=== PATIENT | male | born 1950 | race Caucasian/White ===

== ENCOUNTER 2019-08-25 10:10 | Outpatient (CLI) | payer OTHER, SELFPAY ==
[2019-08-25 10:51] LABS: Blood Urea Nitrogen 12 mg/dL (9-20); Calcium 9.1 mg/dL (8.4-10.2); Carbon Dioxide 27 mmol/L (22-30); Chloride 106 mmol/L (98-107); Estimated Glomerular Filt Rate > 60; Glucose 109 mg/dL (75-110); Potassium 4.4 mmol/L (3.4-5.0); Sodium 138 mmol/L (137-145)
[2019-08-25 11:07] LABS: Hemoglobin A1C 5.8 % (<5.7)
[2019-08-25 11:17] LABS: Creatinine Urine 64.9 mg/dL
[2019-08-25 11:19] LABS: Prostate Specific Antigen < 0.1 ng/mL (< OR = 4.0)
[2019-08-25 11:22] LABS: Microalbumin Urine Random 21.4 mg/L (0-16.7)
== END 2019-08-25 10:11 | disposition home or self-care (01) ==
PROVIDERS: PCP Internal Medicine; Visit Provider Internal Medicine
DX: R73.01 Impaired fasting glucose (principal); Z12.5 Encounter for screening for malignant neoplasm of prostate; Z85.46 Personal history of malignant neoplasm of prostate
CPT/HCPCS: 36415; 80048; 82043; 83036; 84153; G0103

== ENCOUNTER 2020-12-25 19:42 | Observation (INO) | payer OTHER, SELFPAY ==
--- NOTE | ~2020-12-25 | XR_ITS ---
XR chest 2V DATE: 12/25/2020 20:23 INDICATION: Chest pain, epigastric pain, right lower quadrant abdominal pain since morning. Vomiting. TECHNIQUE: AP and lateral views COMPARISON: 10/13/2016 PA and lateral chest FINDINGS: No pulmonary infiltrates or consolidation, pleural effusion or pulmonary vascular congestio n or pneumothorax. No pulmonary consolidation, pleural effusion, pulmonary vascular congestion or pneumothorax. No hilar or mediastinal enlargement. Heart size appears within normal range. IMPRESSION: No active disease Reviewed, dictated and finalized at location A. IMPRESSION: No active disease
--- NOTE | ~2020-12-25 | CT_ITS ---
EXAMINATION: CT abdomen pelvis w con DATE: 12/25/2020 21:03 INDICATION: Right lower quadrant abdominal pain TECHNIQUE: Computed tomography (CT) of the abdomen and pelvis was performed with 100 cc Omnipaque 350 intravenous contrast. Automated exposure control and iterative reconstruction technique were employe d. Exam dose: 1178.55 mGy-cm total exam DLP. COMPARISON: None. FINDINGS: Nonspecific 3 mm right lower lobe pulmonary nodule (series 4 image 3). Heart size is within normal limits. No pericardial or pleural effusion. Small sliding hiatal hernia. There are multiple scattered hepatic cysts, measuring up to 2.7 cm. The gallbladder is present. No ga llbladder wall thickening or pericholecystic fluid or fat stranding. No bile duct or pancreatic duct dilatation. No pancreatic mass lesion. There is calcification at the tail the pancreas. Normal splenic size. Normal morphology of the adrenal glands. Several subcentimeter small renal cysts are identified. No urinary tract calculus or hydroureteroneph rosis. Normal caliber of the abdominal aorta. No intraperitoneal or retroperitoneal or pelvic mass lesion or adenopathy or ascites. There is small fat-containing inguinal hernias. The urinary bladder is unremarkable. Prostate gland and seminal vesicles are absent. The appendix is dilated, measuring up to 1.4 cm diameter. Appendicolith is noted. There is mild peria ppendiceal fat stranding and minimal fluid. The findings are consistent with acute appendicitis. No a bscess is detected. No bowel obstruction or intraperitoneal free air. Included skeletal structures are unremarkable. IMPRESSION: Acute appendicitis Status post prostatectomy Small sliding hiatal hernia Multiple hepatic and a few small renal cysts Dr. Wood telephoned the report of acute appendicitis on 12/25/2020 at 2116 hours to ER Charge Nurse Isaiah morgan, who indicated she would notify ER physician Dr. Leiva. Reviewed, dictated and finalized at Location A. Reviewed, dictated and finalized at location A. IMPRESSION: Acute appendicitis Status post prostatectomy Small sliding hiatal hernia Multiple hepatic and a few small renal cysts Dr. Wood telephoned the report of acute appendicitis on 12/25/2020 at 2116 hours to ER Charge Nurse Danii, who indicated she would notify ER physician Dr. Magaly zhou
--- NOTE | 2020-12-25 19:52 | ECG_ITS ---
Measurements Intervals Warner Rate: 66 P: 34 OK: 196 QRS: 60 QRSD: 108 T: 15 QT: 401 QTc: 421 Interpretive Statements SINUS RHYTHM NORMAL ECG Electronically Signed On 12-25-2020 20:20:37 CDT by Neto Coates D.O.
[2020-12-25 20:02] VITALS: BP 142/86; PULSE 71; RESP 18; TEMP 36.1; O2SAT 98
[2020-12-25 20:03] LABS: Basophils Absolute Auto 0.1 K/mm3 (0.0-0.1); Basophils Percent Auto 0.7 % (0.2-1.2); Eosinophils Absolute Auto 0.3 K/mm3 (0-0.3); Eosinophils Percent Auto 2.6 % (0-4.4); Hematocrit 42.1 % (42.0-52.0); Hemoglobin 14.7 g/dL (14.0-18.0); Immature Granulocyte Absolute 0.02 K/mm3 (0.00-0.031); Immature Granulocyte Percent A 0.2 % (0-0.5); Lymphocytes Absolute Auto 1.05 K/mm3 (0.9-3.2); Lymphocytes Percent Auto 9.8 % (18.3-44.2); Mean Corpuscular HGB Conc 34.9 g/dl (32-36); Mean Corpuscular Hemoglobin 30.3 pg (26-34); Mean Corpuscular Volume 86.8 fl (80-100); Mean Platelet Volume 9.3 fl (7.4-10.4); Monocytes Absolute Auto 0.5 K/mm3 (0.1-0.6); Monocytes Percent Auto 4.5 % (2.6-8.5); Neutrophils Absolute Auto 8.8 K/mm3 (1.3-6.7); Neutrophils Percent Auto 82.2 % (45.5-73.1); Platelet Count Result 255 k/mm3 (150-375); Red Blood Count 4.85 M/mm3 (4.6-6.20); Red Cell Distribution Width 12.2 % (11.5-14.5); White Blood Count 10.7 K/mm3 (4.5-10.0)
[2020-12-25 20:12] LABS: Anion Gap 10 mmol/L (8-16); Blood Urea Nitrogen 16 mg/dL (9-20); Calcium 9.4 mg/dL (8.4-10.2); Carbon Dioxide 23 mmol/L (22-30); Chloride 107 mmol/L (98-107); Estimated CRCL calculation 64 ml/min; Estimated Glomerular Filt Rate > 60; Glucose 125 mg/dL (65-110); Potassium 4.2 mmol/L (3.4-5.0); Sodium 140 mmol/L (137-145)
[2020-12-25 20:13] LABS: Partial Thromboplastin Time 24.1 SECONDS (22.3-36.8); Prothrombin Time 13.4 Seconds (11.1-14.7)
--- NOTE | 2020-12-25 20:15 | PC.NURSE ---
Patient taken to xray.
[2020-12-25 20:24] LABS: Troponin I < 0.012 ng/mL (0.000-0.034)
--- NOTE | 2020-12-25 20:36 | ED.ABDPAIN ---
HPI - Abdominal Pain General Chief Complaint: Chest Pain Stated Complaint: abdominal/chest pain Time Seen by Provider: 12/25/20 20:15 Source: patient and RN notes reviewed Mode of arrival: ambulatory Limitations: no limitations History of Present Illness HPI narrative: This is a 70 year old male who presents for evaluation of abdominal pain. He states this morning he developed upper abdominal pain and right lower abdominal pain. This pain has been constant with intermittent sharp pain that radiates to his epigastric. He has nausea with dry heaves. He denies urinary problems or fever/chills. He denies having similar pain in the past. He took aspirin for his pain today with out relief. His pain is rated 8/10. MD elicited complaint: abdominal pain Related Data Home Medications Medication Instructions Recorded Confirmed krill 1 cap PO DAILY 03/19/19 09/01/20 [id number] 300 mg-90 mg-24 mg-50 mg capsule Allergies Allergy/AdvReac Type Severity Reaction Status Date / Time No Known Allergies Allergy Verified 12/25/20 20:15 Review of Systems Review of Systems: All systems reviewed & are unremarkable except as noted in HPI and below PMFSH Past Medical History Medical History (Updated 12/25/20 @ 23:01 by Liudmila Leiva MD) Essential hypertension Mixed hyperlipidemia Prostate cancer Surgical History Surgical History (Updated 04/26/20 @ 07:54 by Robert Olivares CMA) History of prostatectomy Family History Family History Father Hypertension Patient's father is Mother Family history of dementia Social History Social History (Updated 09/01/20 @ 09:36 by Chanelle Gomez MA) Smoking status: Never smoker Second hand tobacco smoke exposure: Yes Alcohol intake: current Drinks per week: 18 Exam Const: General: no acute distress and alert Orientation/consciousness: patient oriented x3 Eyes: EOM: EOMs intact bilaterally Resp: Effort & Inspection: normal respiratory effort and no retractions Auscultation: clear to auscultation bilaterally Cardio: Rate: regular rate Rhythm: regular rhythm Heart sounds: no murmurs GI: GI Palp: Yes Soft to palpation, Yes Tenderness to palpation present (GI) (RLQ, RUQ worse at RLQ), No Guarding due to palpation present (GI) and No Rigid due to palpation Auscultation: normal bowel sounds Skin: General skin exam: normal color Rashes: no rashes Neuro: General: patient oriented x3, moves all extremities and CN's II-XI intact bilaterally Psych: Mental Status: mental status grossly normal Affect: normal affect Course Reevaluation(s) Reevaluation #1: I discussed with patient that he was found to have acute appendicitis as the cause of his pain. He understands he will be admitted and place on IV antibiotics. He will see surgeon tomorrow. Date: 12/25/20 Time: 22:00 Consultations Consultation #1: I Discussed case with Dr. Villegas who agrees to admit to his service. He request IV antibiotics. Date: 12/25/20 Time: 21:40 Vital Signs Vital signs: Vital Signs Temperature 96.9 F L 12/25/20 20:02 Pulse Rate 71 12/25/20 20:02 Respiratory Rate 18 12/25/20 20:02 Blood Pressure 142/86 H 12/25/20 20:02 Pulse Oximetry 98 12/25/20 20:02 Temperature 96.9 F L 12/25/20 20:02 Pulse Rate 79 12/25/20 21:15 Respiratory Rate 13 12/25/20 21:15 Blood Pressure 152/99 H 12/25/20 21:15 Pulse Oximetry 98 12/25/20 21:15 MDM - Abdominal Pain Lab Data Attestation: I reviewed the patient's lab results. Result diagrams: 12/25/20 19:56 12/25/20 19:56 Labs: Lab Results 12/25/20 12/25/20 12/25/20 Range/Units 19:56 19:56 19:56 WBC 10.7 H (4.5-10.0) K/mm3 RBC 4.85 (4.6-6.20) M/mm3 Hgb 14.7 (14.0-18.0) g/dL Hct 42.1 (42.0-52.0) % MCV 86.8 (80-100) fl MCH 30.3 (26-34) pg MCHC 34
[2020-12-25] MEDS: MORPHINE SULFATE (*CRX) 4 MG/ML INJ 6 MG IV PUSH (20:51)
[2020-12-25] MEDS: ONDANSETRON INJ 4 MG/2 ML VIAL IV PUSH (20:51)
[2020-12-25] MEDS: SODIUM CHLORIDE 0.9% IV 1,000 ML 999 ML IV CONT (20:51)
[2020-12-25 20:53] LABS: Alanine Aminotransferase 29 U/L (4-50); Albumin Level 4.7 g/dL (3.5-5.1); Alkaline Phosphatase 58 U/L (38-126); Aspartate Amino Transferase 29 U/L (17-59); Bilirubin,Total 0.9 mg/dL (0.2-1.3)
--- NOTE | 2020-12-25 20:55 | PC.NURSE ---
Patient taken to CT.
[2020-12-25 20:59] LABS: Lipase 56 U/L (23-300)
[2020-12-25 21:07] VITALS: PULSE 80; RESP 12; O2SAT 98
[2020-12-25 21:15] VITALS: BP 152/99; PULSE 79; RESP 13; O2SAT 98
[2020-12-25 22:01] LABS: Add Urine Microscopic? YES; Appearance Urine Clear (Clear); Bilirubin Urine Negative (Negative); Blood Urine Negative (Negative); Color Urine Straw (Yellow); Glucose Urine UA Negative (Negative); Ketones Urine Trace mg/dL (Negative); Leukocyte Esterase Ur Negative LEU/UL (Negative); Nitrate Urine Negative (Negative); Protein Urine Negative (Negative); RBC Urine 0-2 /hpf (0-2); Urobilinogen Urine Negative mg/dL (<2.0)
[2020-12-25 22:06] LABS: Specific Grav Ur 1.034 (1.001-1.035)
[2020-12-25] MEDS: HYDROmorphone HCL INJ (*CRX) 1 MG/ML SYR IV PUSH (23:00)
[2020-12-25 23:03] VITALS: BP 150/83; PULSE 72; RESP 16; TEMP 36.5; O2SAT 98
[2020-12-25 23:05] LABS: Troponin I < 0.012 ng/mL (0.000-0.034)
[2020-12-25 23:19] VITALS: BMI 29.5
[2020-12-25 23:25] VITALS: BP 143/80; PULSE 71; RESP 14; TEMP 37.1; O2SAT 96
--- NOTE | 2020-12-25 23:32 | ADMGEN ---
This patient, Tru Haynes, was admitted to [facility]. Patient/family oriented to hospital policies and general routines including ID bracelet, bed and alarms, visiting hours, pain management, procedures, bathroom and other care routines, personal items, smoking policy, room service/diet, and visiting hours. Information on how to activate the Rapid Response Team has been discussed. Patient/Family are encouraged to report perceived risks to care and to ask questions if they do not understand what they are told or what they should do.
[2020-12-25] MEDS: SODIUM CHLORIDE 0.9% IV 1,000 ML 125 ML IV CONT (23:47)
[2020-12-26] VITALS (21 sets, daily range): BP systolic 120–164; BP diastolic 72–94; PULSE 77–98; RESP 13–22; TEMP 36.9–37.7; O2SAT 92–99
[2020-12-26 02:16] LABS: Troponin I < 0.012 ng/mL (0.000-0.034)
[2020-12-26] MEDS: HYDROmorphone HCL INJ (*CRX) 1 MG/ML SYR IV PUSH (03:18)
[2020-12-26 05:26] LABS: Basophils Absolute Auto 0.1 K/mm3 (0.0-0.1); Basophils Percent Auto 0.4 % (0.2-1.2); Eosinophils Percent Auto 0.1 % (0-4.4); Hematocrit 40.4 % (42.0-52.0); Hemoglobin 13.8 g/dL (14.0-18.0); Immature Granulocyte Absolute 0.03 K/mm3 (0.00-0.031); Immature Granulocyte Percent A 0.2 % (0-0.5); Lymphocytes Absolute Auto 1.04 K/mm3 (0.9-3.2); Lymphocytes Percent Auto 8.4 % (18.3-44.2); Mean Corpuscular HGB Conc 34.2 g/dl (32-36); Mean Corpuscular Hemoglobin 30.5 pg (26-34); Mean Corpuscular Volume 89.2 fl (80-100); Monocytes Absolute Auto 0.9 K/mm3 (0.1-0.6); Monocytes Percent Auto 7.5 % (2.6-8.5); Neutrophils Absolute Auto 10.3 K/mm3 (1.3-6.7); Neutrophils Percent Auto 83.4 % (45.5-73.1); Platelet Count Result 214 k/mm3 (150-375); Red Blood Count 4.53 M/mm3 (4.6-6.20); Red Cell Distribution Width 12.3 % (11.5-14.5); White Blood Count 12.3 K/mm3 (4.5-10.0)
[2020-12-26 05:45] LABS: Alanine Aminotransferase 25 U/L (4-50); Albumin Level 4.3 g/dL (3.5-5.1); Alkaline Phosphatase 43 U/L (38-126); Anion Gap 10 mmol/L (8-16); Aspartate Amino Transferase 32 U/L (17-59); Bilirubin,Total 1.3 mg/dL (0.2-1.3); Blood Urea Nitrogen 15 mg/dL (9-20); Calcium 8.2 mg/dL (8.4-10.2); Carbon Dioxide 24 mmol/L (22-30); Chloride 105 mmol/L (98-107); Estimated CRCL calculation 71 ml/min; Estimated Glomerular Filt Rate > 60; Glucose 134 mg/dL (65-110); Potassium 4.5 mmol/L (3.4-5.0); Sodium 139 mmol/L (137-145)
--- NOTE | 2020-12-26 06:50 | WPDANESEPPF ---
Anes - Initial Pre Proc Eval Procedure: Operation Date: 12/26/20 07:30 Proposed Procedures p Laparoscopic Appendectomy - Amy Villegas MD Date/Time: 12/26/20 06:50 Surgeon: Amy Villegas MD Pre Op Diagnosis: Acute Appendicitis Patient Data Age: 70 Gender: M Height: 1.78 m Weight: 93.2 kg Last Vital Signs Temp 37.3 C 12/26/20 06:00 Pulse 81 12/26/20 06:00 Resp 16 12/26/20 06:00 BP 144/94 H 12/26/20 06:00 Pulse Ox 97 12/26/20 06:00 Allergies Allergy/AdvReac Type Severity Reaction Status Date / Time No Known Allergies Allergy Verified 12/25/20 20:15 Home Medications Medication Instructions Recorded Confirmed Type benazepril 40 mg tablet See Rx Instructions .ROUTE 07/22/20 12/26/20 Rx .COMPLEX #90 tablet potassium chloride 20 mEq 20 meq PO DAILY #90 tablet 09/01/20 12/26/20 Rx tablet,extended release hydrochlorothiazide 25 mg tablet See Rx Instructions .ROUTE 10/13/20 12/26/20 Rx .COMPLEX #90 tablet metoprolol tartrate 100 mg tablet 100 mg PO Q12H #180 tablet 10/18/20 12/26/20 Rx rosuvastatin 10 mg tablet See Rx Instructions .ROUTE 10/18/20 12/26/20 Rx .COMPLEX #90 tablet Laboratory Tests 12/25/20 12/25/20 12/25/20 19:56 19:56 19:56 WBC 10.7 K/mm3 H K/mm3 (4.5-10.0) RBC 4.85 M/mm3 M/mm3 (4.6-6.20) Hgb 14.7 g/dL g/dL (14.0-18.0) Hct 42.1 % % (42.0-52.0) MCV 86.8 fl fl (80-100) MCH 30.3 pg pg (26-34) MCHC 34.9 g/dl g/dl (32-36) RDW 12.2 % % (11.5-14.5) Plt Count 255 k/mm3 k/mm3 (150-375) MPV 9.3 fl fl (7.4-10.4) Immature Gran % (Auto) 0.2 % % (0-0.5) Neut % (Auto) 82.2 % H % (45.5-73.1) Lymph % (Auto) 9.8 % L % (18.3-44.2) Ma[place]ick % (Auto) 4.5 % % (2.6-8.5) Eos % (Auto) 2.6 % % (0-4.4) Baso % (Auto) 0.7 % % (0.2-1.2) Lymph # (Auto) 1.05 K/mm3 K/mm3 (0.9-3.2) [place]ick # (Auto) 0.5 K/mm3 K/mm3 (0.1-0.6) Eos # (Auto) 0.3 K/mm3 K/mm3 (0-0.3) Baso # (Auto) 0.1 K/mm3 K/mm3 (0.0-0.1) Abs Immat Gran (auto) 0.02 K/mm3 K/mm3 (0.00-0.031) Absolute Neuts (auto) 8.8 K/mm3 H K/mm3 (1.3-6.7) Absolute Nucleated RBC 0.0 K/mm3 K/mm3 (0.0-0.012) Nucleated RBC % 0.0 % % (0.0-0.2) PT 13.4 Seconds Seconds (11.1-14.7) INR 1.0 APTT 24.1 SECONDS SECONDS (22.3-36.8) Sodium 140 mmol/L mmol/L (137-145) Potassium 4.2 mmol/L mmol/L (3.4-5.0) Chloride 107 mmol/L mmol/L (98-107) Carbon Dioxide 23 mmol/L mmol/L (22-30) Anion Gap 10 mmol/L mmol/L (8-16) BUN 16 mg/dL mg/dL (9-20) Creatinine 1.00 mg/dL mg/dL (0.7-1.3) Estim Creat Clear Calc 64 ml/min ml/min Estimated GFR > 60 (59 - ) Glucose 125 mg/dL H mg/dL (65-110) Calcium 9.4 mg/dL mg/dL (8.4-10.2) Total Bilirubin Direct Bilirubin AST ALT Alkaline Phosphatase Troponin I < 0.012 ng/mL ng/mL (0.000-0.034) Total Protein Albumin Lipase Urine Color Urine Appearance Urine pH Ur Specific [place] Urine Protein Urine Glucose (UA) Urine Ketones Ur Blood (Man) Urine Nitrate Urine Bilirubin Urine Urobilinogen Leukocyte Esterase Rfl Urine RBC 12/25/20 12/25/20 12/25/20 19:56 19:56 21:50 WBC RBC Hgb Hct MCV MCH MCHC RDW Plt Count MPV Immature Gran % (Auto) Neut % (Auto) Lymph % (Auto)
--- NOTE | 2020-12-26 07:00 | PC.NURSE ---
0700 updated spouse on pt condition and that i just took him to the or to prep him for surgery with dr bhat
--- NOTE | 2020-12-26 07:16 | PM.IMHP ---
H&P: HPI History of Present Illness Date/Time: 12/26/20 07:16 Pt is a 70 y/o M presenting to ED overnight c/o severe RLQ abdominal pain. Pt reports pain started yesterday morning and was diffuse, dull. Pt reports pain progressively worsened to sharp and localized to R lower side. Pt reports some radiation to upper abdomen as well. Pt reports decreased appetite and nausea. Chief Complaint: acute appendicitis Review of Systems Constitutional: Constitutional: Reports anorexia, Denies chills, Denies fatigue, Denies fever(s), Denies lethargy, Denies malaise, Reports poor appetite, Denies weakness, Denies weight gain and Denies weight loss Eyes: Eyes: Reports no additional eye complaints ENT: Reports system reviewed and no additional complaints, except as documented Cardiovascular: Cardiovascular: Reports no additional cardiovascular complaints Respiratory: Respiratory: Reports no additional respiratory complaints Gastrointestinal: Gastrointestinal: Reports as per HPI, Reports abdominal pain, Denies belching, Denies bloating, Denies change in stool character, Denies constipation, Reports GI cramping, Denies heartburn, Denies diarrhea, Denies loose stools, Reports nausea and Denies vomiting Genitourinary: Genitourinary: Reports no additional male genitourinary complaints Musculoskeletal: Musculoskeletal: Reports no additional musculoskeletal complaints Integumentary/Breasts: Skin/Breast: Reports system reviewed and no additional complaints, except as docu Neurologic: Reports system reviewed and no additional complaints, except as documented Psychiatric: Psychiatric: Reports no additional psychiatric complaints Endocrine: Endocrine: Reports no additional endocrine complaints Hematologic/Lymphatic: Hematologic/Lymphatic: Reports no additional hematologic/lymphatic complaints Allergic/Immunologic: Allergic/Immunologic: Reports no additional allergic/immunologic complaints [facility] Past Medical History Medical History Essential hypertension Liver cyst Mixed hyperlipidemia Prostate cancer Renal cyst Surgical History Surgical History History of prostatectomy Family History Family History Father Patient's father is Hypertension Mother Family history of dementia Other Social History Social History Smoking status: Never smoker Second hand tobacco smoke exposure: Yes Alcohol intake: current Drinks per week: 18 Substance use: never Spiritual care concerns: No Meds Home Medications and Allergies Home Medications Medication Instructions Recorded Confirmed Type benazepril 40 mg tablet See Rx Instructions .ROUTE 07/22/20 12/26/20 Rx .COMPLEX #90 tablet potassium chloride 20 mEq 20 meq PO DAILY #90 tablet 09/01/20 12/26/20 Rx tablet,extended release hydrochlorothiazide 25 mg tablet See Rx Instructions .ROUTE 10/13/20 12/26/20 Rx .COMPLEX #90 tablet metoprolol tartrate 100 mg tablet 100 mg PO Q12H #180 tablet 10/18/20 12/26/20 Rx rosuvastatin 10 mg tablet See Rx Instructions .ROUTE 10/18/20 12/26/20 Rx .COMPLEX #90 tablet Allergies Allergy/AdvReac Type Severity Reaction Status Date / Time No Known Allergies Allergy Verified 12/25/20 20:15 Vital Signs Vital Signs - 24 hr 12/25/20 20:02 12/25/20 21:07 12/25/20 21:15 Temperature 36.1 C L Pulse Rate 71 80 79 Respiratory Rate 18 12 13 Blood Pressure 142/86 H 152/99 H Pulse Oximetry 98 98 98 12/25/20 23:03 12/25/20 23:25 12/26/20 03:23 Temperature 36.5 C 37.1 C 36.9 C Pulse Rate 72 71 85 Respiratory Rate 16 14 15 Blood Pressure 150/83 H 143/80 H 156/88 H Pulse Oximetry 98 96 97 12/26/20 06:00 Temperature 37.3 C Pulse Rate 81 Respiratory Rate 16 Blood Pressure 144/94
--- NOTE | 2020-12-26 07:23 | WPDHPUPDATE1 ---
History and Physical Update Update Date/Time: 12/26/20 07:23 History and Physical has been reviewed, including an updated exam of the patient. There are NO changes in the patient's condition. Risks, benefits, and alternatives have been discussed and questions answered. Patient agrees to proceed with procedure.
[2020-12-26] MEDS: BUPIVACAINE/EPINEPHRINE 0.25% 50 ML VIAL 30 ML INFILTRATE (07:44)
--- NOTE | 2020-12-26 08:37 | P.OP_ITS ---
Procedure Note - Detailed Date of Procedure 12/26/20 Pre-op Diagnosis Acute Appendicitis Post-op Diagnosis other (small perforation near base of appendix) Procedure Performed laparoscopic appendectomy, washout Surgeon Amy Villegas MD Anesthesia general Indications 70 y/o M presenting c acute appendicitis Findings small perforation at base of appendix, no abscess Description of Procedure The patient was taken to the operating room and placed in the supine position. After adequate induction of general anesthesia, the patient was prepped and draped in the normal sterile fashion. A time-out was then done to verify the patient's identity, as well as the procedure being performed. I began by making a 5 mm incision in the infraumbilical region, through this a Veress needle was placed in the peritoneal cavity. CO2 gas was then insufflated and after adequate pneumoperitoneum was achieved the Veress needle was removed. Then placed a 5 mm Optiview trocar under direct visualization into the peritoneal ca vity. I then insufflated through this trocar site and the endoscope was placed into the trocar. Under direct visualization, placed 2 further 5 mm suprapubic port as well as an additional 12 mm port in the left lower abdomen. At this point identified the cecum, I retracted the cecum both medially and superiorly allowing me to expose the appendix. The appendix was noted to be very dilated and inflamed uniformly. The appendix was noted to be very adherent to the right lateral sidewall as well as the ileum. I was able to bluntly dissect the appendix from these adhesions. I then was able to locate the base of the appendix with the cecum. I created a window with the [place] dissector between the appendix itself and the mesoappendix. I then transected the mesoappendix with a white vascular staple load x 2. The Endo-REKHA was then reloaded with a blue staple load and I transected the base of the appendix. There was a noted small perforation near the proximal end of the appendix. Once the specimen was completely detached, an endo-pouch was placed into the 12 mm port site and the specimen was removed through the endo-pouch. The appendiceal specimen will be sent to pathology for further review. I then copiously irrigated the right lower quadrant given the small perforation. Of note, no abscess was noted. Hemostasis was noted at both staple lines no other pathology was seen in this area. I then moved the camera to the suprapubic port to check our its port of entry. No iatrogenic injury or other pathology was noted in the upper abdomen. I then closed the 12 mm port site with a Pj code and 0 Vicryl suture under direct visualization. At this point, the abdomen was desufflated and all ports were removed. All port sites were closed with 4 Monocryl subcuticular suture. Dermabond was placed on all wounds. The patient tolerated the procedure well and was extubated in the operating room postop. He will be sent to the recovery room in stable condition. Estimated Blood Loss 10 Drains No Packing No Pathology yes Complications No immediate complications Condition stable Disposition PACU
[2020-12-26] MEDS: LACTATED RINGERS 1,000 ML 30 ML IV CONT ×2 (08:44→09:13)
[2020-12-26] MEDS: fentaNYL CITRATE INJ (*CRX) 100 MCG/2 ML VIAL 25 MCG IV PUSH ×8 (09:13→09:54)
--- NOTE | 2020-12-26 10:00 | PC.NURSE ---
REPORT RECEIVED FROM JUAN JESUS IN PACU.
[2020-12-26] MEDS: HYDROmorphone HCL INJ (*CRX) 1 MG/ML SYR 0.5 MG IV PUSH ×2 (10:11→10:16)
[2020-12-26] MEDS: SCOPOLAMINE 1.5 MG PATCH TRANSDERM (10:20)
--- NOTE | 2020-12-26 10:50 | PC.NURSE ---
ARRIVES FROM PACU S/P LAP APPSaida W/ DR. ARGUETA TO [employer] 2 VIA BED. AWAKE, DROWSY. REPORTS ABDOMINAL PAIN TO R. LOWER ABDOMEN REMAINS AT 4/10; DULL, ACHY. C/O NAUSEA ON ARRIVAL. NO EMESIS. ASSESSMENT COMPLETE. VSS. IVF'S RESUMED AT 125ML/HR. 3 SMALL, WELL APPROXIMATED INCISIONS NOTED ON ABDOMEN; AT UMBILICUS, SUPERPUBIC, L. LOWER ABDOMEN. ALL CLOSED WITH GLUE. ABDOMEN MILDLY DISTENDED, BS X 4. WILL CONTINUE TO MONITOR.
[2020-12-26] MEDS: ONDANSETRON INJ 4 MG/2 ML VIAL IV PUSH (11:17)
[2020-12-26] MEDS: POTASSIUM CHLORIDE 20 MEQ TABLET.ER PO (12:04)
[2020-12-26] MEDS: DOCUSATE SODIUM 100 MG CAPSULE PO (12:04)
[2020-12-26] MEDS: METOPROLOL TARTRATE 50 MG TAB 100 MG PO (12:04)
--- NOTE | 2020-12-26 13:00 | PC.NURSE ---
UP IN CHAIR FROM 1200 TO 1300. TOLERATED WELL. VOIDED IN TOILET. REPORTS NAUSEA SUBSIDED AFTER ZOFRAN IVP GIVEN EARLIER. REPORTS ABDOMINAL PAIN EASED A BIT WHILE UP. TOLERATED CLEAR LIQUIDS WELL. REFUSES MEAL TRAY. PUDDING GIVEN NOW. ENCOURAGED TO COUGH AND DEEP BREATHE. PILLOW GIVEN TO SPLINT ABDOMEN. WILL CONTINUE TO MONITOR.
[2020-12-26] MEDS: SODIUM CHLORIDE 0.9% IV 1,000 ML 125 ML IV CONT (13:01)
--- NOTE | 2020-12-26 15:15 | PC.NURSE ---
UP AGAIN TO VOID IN BATHROOM. ATE PUDDING AND TOLERATED WELL. NO CHANGE IN ABDOMEN STATUS OR INCISIONS. STEADY GAIT. DENIES NAUSEA. REPORTS ABDOMEN WITH DULL ACHE TO INCISION AREAS AND TO R. LOWER ABDOMEN. HAS HAD IV ABX DOSE AT 1200. WILL GIVE PO DOSE OF PRN PAIN MED PRIOR TO DISCHARGE. IV SITE DISCONTINUED. SITE WNL AND DRESSED. DRESSING FOR DISCHARGE HOME.
[2020-12-26] MEDS: HYDROcodone/acetaminophen (*CRX) 5-325 MG TABLET 1 TAB PO (15:33)
--- NOTE | 2020-12-26 15:45 | PC.NURSE ---
PO NORCO GIVEN FOR ABDOMINAL DISCOMFORT FOR DISCHARGE. DENIES NAUSEA. NO CHANGE IN ABDOMEN STATUS OTHERWISE. REVIEWED ALL DISCHARGE INSTRUCTIONS W/ PT. QUESTIONS ANSWERED. VOICED UNDERSTANDING OF ALL. INSTRUCTED TO MONITOR TEMP AT HOME. DISCHARGE INSTRUCTIONS GIVEN .
--- NOTE | 2020-12-26 15:50 | PC.NURSE ---
DISCHARGED HOME, OUT VIA WC TO 'S WAITING CAR WITH ALL PERSONAL BELONGINGS AND DISCHARGE PACKET. VOICES NO C/O. NO DISTRESS NOTED.
--- NOTE | 2020-12-30 11:12 | PM.DS ---
DS: Admitting Diagnosis Discharge Date 12/26/20 Admitting Diagnosis acute appendicitis DS: Discharge Diagnosis Discharge Diagnosis (1) Acute appendicitis: Qualifiers: Appendicitis abscess presence: without abscess Appendicitis perforation presence: without perforation Code(s): K35.80 - Unspecified acute appendicitis Status: Acute Assessment and Plan: s/p lap appy, routine postop care, rx for abx, pain meds, f/u 2 wks DS: Summary Hospital Course Reason for hospitalization: acute appendicitis Hospital Course: 70 y/o M presents c/o severe lower abd pain. Workup, including CT, c/w acute appendicitis. Pt admitted and started on IV abx. Upon evaluation, decision to proceed to c urgent appendectomy. Pt had appendectomy on 12/30, please see full op note for details. Pt found to have perforation. Pt transferred back to floor. At postop check, pt doing well and wants to go home. Pt will be dc'd c abx, po analgesia. Status at Discharge Functional status at discharge: independent ambulation Overall status at discharge: patient is progressing back to baseline Time Spent with Patient Time attestation: Total time spent providing and/or coordinating discharge services: Time spent: Less than 30 minutes Exam Const: General: cooperative and no acute distress Nutritional Appearance: obese Orientation/consciousness: patient oriented x3 Resp: Auscultation: clear to auscultation bilaterally Cardio: Rate: regular rate Rhythm: regular rhythm GI: Inspection: normal to inspection, distended and incision GI Palp: Yes Tenderness to palpation present (GI) DS: Data Data Completed and Pending Completed studies during hospitalization: Pending at discharge 12/26/20 07:44 Surgical [PTH] Routine Discharge Plan Discharge Attending physician on discharge: Amy Villegas Consulting providers: Neto Coates ; Krunal Wood Discharging Clinician: Amy Villegas Anticipated Discharge Date/Time: 12/26/20 13:00 Patient Disposition: Home, Self-Care Activity: other - see discharge instructions Diet: other - see discharge instructions Wound Care Instructions: other - see discharge instructions Discharge Instructions: DISCHARGE INSTRUCTION SHEET FOR HERNIA, GALLBLADDER AND APPENDIX SURGERIES DR. VILLEGAS PATIENT TO TAKE HOME 1. May shower in 24 hours, no soaking in bath x 2weeks. 2. Call office for: Wound increasingly painful or bleeding Vomiting Fever of greater than 101 degrees 3. If no bowel movement for three days, take 1 oz. (30 ml) Milk of Magnesia or MiraLax 17g 1 to 2 times daily. 4. No heavy lifting > 10-15 pounds x 6 weeks for hernia repairs and 2 weeks for laparoscopic cholecystectomy or appendectomy. 5. No driving for 3 days or while taking narcotic pain medications. 6. Ice to surgical site for 48 hours (30 min on, then 30 min off). 7. Up walking 10-30 minutes three times per day. 8. Resume previous home medications. 9. Follow-up 10-14 days in office for wound check or as previously scheduled. ([id number]) 10. Oral pain medications prescription to be sent to pharmacy. Take Tylenol 500mg every 6 hours and Ibuprofen 600mg every 6 hours for the first 2 days, then as needed. 11. NUTRITION: Start out by drinking fluids and increase your diet as tolerated. If you experience nausea, try dry toast, crackers, and 7-UP. If nausea or vomiting persists, contact your surgeon?s office. 12. Gallbladders-Low Fat Diet for 2 weeks (send care note of low fat diet) 13. Inguinal Hernias-wear scrotal support for 48 hours 14. Abdominal Hernias-if sent home with abdominal binder, wear for the first 2 weeks (may remove to shower or at night to sleep).
== END 2020-12-26 15:50 | disposition home or self-care (01) ==
LOC: ANHED 22:00 → ANHCPC 22:44
PROVIDERS: Emergency Medicine; General Practice; Admitting Provider Surgery; Emergency Provider Surgery; PCP Internal Medicine; Visit Provider Surgery
PROC: 0DTJ4ZZ Resection of Appendix, Percutaneous Endoscopic Approach (ICD-10-PCS; CPT 44970; principal; 2020-12-26 07:30)
DX: K35.32 Acute appendicitis with perforation, localized peritonitis, and gangrene, without abscess (principal); I10 Essential (primary) hypertension; E78.5 Hyperlipidemia, unspecified; R10.9 Unspecified abdominal pain; Z85.46 Personal history of malignant neoplasm of prostate
CPT/HCPCS: 44970; 36415; 71046; 74177; 80048; 80053; 80076; 81001; 83690; 84484; 85025; 85610; 85730; 88304; 93005; 96361; 96365; 96366; 96375; 96376; 99285; A9270; G0378; J1100; J1170; J2250; J2270; J2405; J2543; J3010; J7030; J7120; Q9967

== ENCOUNTER → 2021-02-01 08:27 | Outpatient (CLI) | payer OTHER, SELFPAY ==
[2021-02-01 18:23] LABS: SARS-CoV-2 RNA PCR Negative
== END ==
PROVIDERS: PCP Internal Medicine; Visit Provider Internal Medicine
DX: R68.89 Other general symptoms and signs (principal); Z20.822 Contact with and (suspected) exposure to COVID-19
CPT/HCPCS: C9803; U0003; U0005

== ENCOUNTER → 2021-02-02 02:37 | Outpatient (CLI) | payer OTHER, SELFPAY ==
[2021-02-03 06:56] LABS: Influenza Control Positive
== END ==
PROVIDERS: PCP Internal Medicine; Visit Provider Internal Medicine
DX: R68.89 Other general symptoms and signs (principal)
CPT/HCPCS: 87804

== ENCOUNTER 2021-02-02 12:11 | Outpatient (CLI) | payer OTHER, SELFPAY ==
--- NOTE | ~2021-02-02 | XR_ITS ---
EXAMINATION: XR chest 2V DATE: 02/02/2021 12:31 INDICATION: Shortness of breath and cough. TECHNIQUE: Frontal and lateral views of the chest were obtained. COMPARISON: Chest 2 views 12/25/2020, CT abdomen and pelvis 12/25/2020 FINDINGS: The chest demonstrates clear lungs without pneumonia, pleural effusion, or pneumothorax. Th e heart size is normal. IMPRESSION: 1. No acute cardiopulmonary disease. Reviewed, dictated and finalized at location A.
== END 2021-02-02 12:12 | disposition home or self-care (01) ==
LOC: ANHIMG 12:14
PROVIDERS: PCP Internal Medicine; Visit Provider Internal Medicine
DX: R06.02 Shortness of breath (principal)
CPT/HCPCS: 71046; 87804

== ENCOUNTER 2021-10-26 01:04 | Day surgery (SDC) | payer OTHER, SELFPAY ==
--- NOTE | 2021-10-25 18:44 | PM.HPGS ---
History of Present Illness History of Present Illness Consent: Risks, benefits, and alternatives have been discussed and questions answered. Patient agrees to proceed with procedure. Chief complaint: neoplasm screening Narrative: Tru Haynes is a 71 year old male Was referred for colon cancer screening. His last colonoscopy I performed about 10 years ago. In the interval, he has developed prostate cancer. Review of Systems Review of Systems: All systems reviewed & are unremarkable except as noted in HPI and below PMFSH Past Medical History Medical History Essential hypertension Liver cyst Mixed hyperlipidemia Prostate cancer Renal cyst Surgical History Surgical History History of laparoscopic appendectomy History of prostatectomy 12/27/20 Family History Family History Father Patient's father is Hypertension Mother Family history of dementia Other Social History Social History Smoking status: Never smoker Second hand tobacco smoke exposure: Yes Alcohol intake: current Drinks per week: 18 Alcohol use details: on occasion Substance use: never Substance use type: does not use Living arrangements: with family Spiritual care concerns: No Meds Home Medications and Allergies Home Medications Medication Instructions Recorded Confirmed Type potassium chloride 20 mEq 20 meq PO DAILY #90 tabs 08/30/21 10/12/21 Rx tablet,extended release(part/cryst) amlodipine 10 mg tablet 10 mg PO DAILY #90 tabs 09/15/21 10/12/21 Rx benazepril 40 mg tablet 40 mg PO DAILY #90 tabs 09/15/21 10/12/21 Rx hydrochlorothiazide 25 mg tablet See Rx Instructions .Route 09/15/21 10/12/21 Rx .COMPLEX #90 tabs metoprolol tartrate 100 mg tablet 100 mg PO BID #180 tabs 09/15/21 10/12/21 Rx rosuvastatin 10 mg tablet See Rx Instructions .Route 09/15/21 10/12/21 Rx .COMPLEX #90 tabs Allergies Allergy/AdvReac Type Severity Reaction Status Date / Time No Known Allergies Allergy Verified 10/26/21 09:36 Exam Resp: Auscultation: clear to auscultation bilaterally Cardio: Rate: regular rate Rhythm: regular rhythm GI: GI Palp: Yes Soft to palpation and No Tenderness to palpation present (GI) Assessment and Plan Assessment and plan (1) Colon cancer screening: Code(s): Z12.11 - Encounter for screening for malignant neoplasm of colon Status: Acute Assessment and Plan: Colonoscopy with possible biopsy or polypectomy or cautery or injection of substances.
[2021-10-26 09:38] VITALS: BP 140/95; PULSE 70; RESP 20; TEMP 36.1; O2SAT 99; BMI 29.9
[2021-10-26] MEDS: LACTATED RINGERS 1,000 ML 150 ML IV CONT (09:45)
--- NOTE | 2021-10-26 10:38 | WPDANESEPPF ---
Anes - Initial Pre Proc Eval Procedure: Operation Date: 10/26/21 11:00 Proposed Procedures p Screening Colonoscopy - Teddy Ackerman MD Date/Time: 10/26/21 10:38 Surgeon: Teddy Ackerman MD Pre Op Diagnosis: neoplasm screening Patient Data Age: 71 Gender: M Height: 1.78 m Weight: 94.9 kg Last Vital Signs Temp 97.0 F L 10/26/21 09:38 Pulse 70 10/26/21 09:38 Resp 20 10/26/21 09:38 BP 140/95 H 10/26/21 09:38 Pulse Ox 99 10/26/21 09:38 O2 Del Method Room Air 10/26/21 09:38 Allergies Allergy/AdvReac Type Severity Reaction Status Date / Time No Known Allergies Allergy Verified 10/26/21 09:36 Home Medications Medication Instructions Recorded Confirmed Type potassium chloride 20 mEq 20 meq PO DAILY #90 tabs 08/30/21 10/12/21 Rx tablet,extended release(part/cryst) amlodipine 10 mg tablet 10 mg PO DAILY #90 tabs 09/15/21 10/12/21 Rx benazepril 40 mg tablet 40 mg PO DAILY #90 tabs 09/15/21 10/12/21 Rx hydrochlorothiazide 25 mg tablet See Rx Instructions .Route 09/15/21 10/12/21 Rx .COMPLEX #90 tabs metoprolol tartrate 100 mg tablet 100 mg PO BID #180 tabs 09/15/21 10/12/21 Rx rosuvastatin 10 mg tablet See Rx Instructions .Route 09/15/21 10/12/21 Rx .COMPLEX #90 tabs Patient hx anesthesia problems: none Family hx anesthesia problems: none Results Review: All pre-operative results and documents have been reviewed as part of the pre-operative evaluation. [facility] Past Medical History Medical History Essential hypertension Liver cyst Mixed hyperlipidemia Prostate cancer Renal cyst Surgical History Surgical History History of laparoscopic appendectomy History of prostatectomy 12/27/20 Family History Family History Father Patient's father is Hypertension Mother Family history of dementia Other Social History Social History Smoking status: Never smoker Second hand tobacco smoke exposure: Yes Alcohol intake: current Drinks per week: 18 Alcohol use details: on occasion Substance use: never Substance use type: does not use Living arrangements: with family Spiritual care concerns: No Anes - Eval Final PreProcedure Day of Procedure 10/26/21 10:38 Patient weight: obese Heart: regular rate and rhythm Lungs: clear to auscultation Airway: Mallampati scale class II Neurological: alert and oriented Last oral intake: >/= 8 hours ASA classification: III Emergent: no Anesthetic plan: proceed Anesthesia type and monitoring: general GIVS and standard monitoring Results Review: All pre-operative results and documents have been reviewed as part of the pre-operative evaluation. Informed Consent: The patient's anesthetic plan and its attendant risks and benefits were discussed with the patient/family/POA. Questions were solicited and answers provided to the satisfaction of the patient/family/POA.
[2021-10-26] MEDS: SIMETHICONE ORAL SUSPENSION 20 MG/0.3 ML 30 ML BOTTLE 0.6 ML IRRIGATION (10:52)
[2021-10-26 10:59] VITALS: BP 129/82; PULSE 64; RESP 20; O2SAT 99
[2021-10-26 11:09] VITALS: BP 136/86; PULSE 62; RESP 20; O2SAT 100
[2021-10-26 11:19] VITALS: BP 142/82; PULSE 68; RESP 18; O2SAT 100
== END 2021-10-26 11:32 | disposition home or self-care (01) ==
PROVIDERS: PCP Internal Medicine; Visit Provider Internal Medicine Gastroenterology
PROC: 0DJD8ZZ Inspection of Lower Intestinal Tract, Via Natural or Artificial Opening Endoscopic (ICD-10-PCS; CPT 45378; principal; 2021-10-26 11:00)
DX: Z12.11 Encounter for screening for malignant neoplasm of colon (principal); I10 Essential (primary) hypertension; E78.2 Mixed hyperlipidemia; Z85.46 Personal history of malignant neoplasm of prostate; E66.9 Obesity, unspecified; Z68.30 Body mass index [BMI] 30.0-30.9, adult
CPT/HCPCS: G0121; J2704; J7120

== ENCOUNTER 2022-02-13 10:05 | Emergency (ER) | payer OTHER, SELFPAY ==
--- NOTE | ~2022-02-13 | XR_ITS ---
EXAMINATION: XR chest 2V DATE: 02/13/2022 10:51 INDICATION: Cough. Crackles at left lung base. TECHNIQUE: Frontal and lateral views of the chest were obtained. COMPARISON: Chest 2 views 02/02/2021, CT abdomen and pelvis 12/25/2020 FINDINGS: The chest demonstrates clear lungs without pneumonia, pleural effusion, or pneumothorax. Th e heart size is normal. IMPRESSION: 1. No acute cardiopulmonary disease. Reviewed, dictated and finalized at location A. [employer]
--- NOTE | 2022-02-13 10:18 | ED.URI ---
HPI - URI/Sore Throat General Chief Complaint: Upper Respiratory Infection Stated Complaint: Cough Time Seen by Provider: 02/13/22 10:35 Source: patient Mode of arrival: ambulatory Limitations: no limitations History of Present Illness HPI Narrative: Mr. Haynes is a 71-year-old male patient presenting to the clinic today with complaints of a cough and sinus drainage x1 week. He reports the cough is now nonproductive but it was at the very beginning. He denies any fever chills. No shortness of breath or chest pain. Has a slight sore throat MD elicited complaint: cough, sore throat and nasal congestion Related Data Home Medications Medication Instructions Recorded Confirmed fenofibrate 40 mg tablet 40 mg PO DAILY 02/13/22 02/13/22 Allergies Allergy/AdvReac Type Severity Reaction Status Date / Time No Known Allergies Allergy Verified 02/13/22 10:53 Review of Systems Review of Systems: Pertinent positives per HPI. Patient denies any fever, chills, rash, headache, visual changes, dizziness, shortness of breath, chest pain, palpitations, nausea, vomiting, diarrhea, constipation, abdominal pain, or any urinary issues. [facility] Past Medical History Medical History Essential hypertension Liver cyst Mixed hyperlipidemia Prostate cancer Renal cyst Surgical History Surgical History History of laparoscopic appendectomy History of prostatectomy 12/27/20 Family History Family History Father Patient's father is Hypertension Mother Family history of dementia Other Social History Social History Smoking status: Never smoker Second hand tobacco smoke exposure: Yes Alcohol intake: current Drinks per week: 18 Alcohol use details: on occasion Substance use: never Substance use type: does not use Spiritual care concerns: No Comments At the time of my signature, I reviewed and agree with the nursing past medical, surgical, social, and family history. There is no relevant family history pertinent to the patient complaint. Exam Narrative: General: Well-developed, well nourished, in no apparent distress Head: Normocephalic, atraumatic Eyes: Pupils equally round and reactive to light bilaterally, EOM intact, sclera and conjunctive clear, no discharge, lids normal Ears: TMs intact and clear, ear canals clear, no drainage, grossly hearing normal. Nose: Nares patent, clear discharge, severe inflammation, maxillary and frontal sinus tenderness. Mouth: Oral pharynx without lesions or masses, good dentition, MMM. Postnasal drip Neck: Supple, trachea midline, no enlargement of anterior or posterior cervical nodes, no thyroid masses or goiter palpable. Cardio: Regular rate and rhythm, s1 and s2 normal, no murmur appreciated. Resp: Crackles in the posterior left base otherwise clear, no rhonchi, wheezing or rubs Course Course Emergency Course: Portions of this record may have been created with voice recognition software. Level of Care: Express Care Visit Vital Signs Vital signs: Vital Signs Temperature 36.2 C L 02/13/22 10:29 Pulse Rate 60 02/13/22 10:29 Respiratory Rate 18 02/13/22 10:29 Blood Pressure 131/72 02/13/22 10:29 Pulse Oximetry 99 02/13/22 10:29 Oxygen Delivery Room Air 02/13/22 10:29 Temperature 36.2 C L 02/13/22 10:29 Pulse Rate 60 02/13/22 10:29 Respiratory Rate 18 02/13/22 10:29 Blood Pressure 131/72 02/13/22 10:29 Pulse Oximetry 99 02/13/22 10:29 Oxygen Delivery Room Air 02/13/22 10:29 Vital signs reviewed MDM - URI/Sore Throat MDM Narrative Medical decision making narrative: At the time of visit patient is resting comfortably on the exam table. Ches
[2022-02-13 10:29] VITALS: BP 131/72; PULSE 60; RESP 18; TEMP 36.2; O2SAT 99
== END 2022-02-13 11:08 | disposition home or self-care (01) ==
PROVIDERS: Emergency Provider Nurse Practitioner Family; PCP Internal Medicine
DX: J01.90 Acute sinusitis, unspecified (principal); I10 Essential (primary) hypertension; E78.2 Mixed hyperlipidemia; Z85.46 Personal history of malignant neoplasm of prostate
CPT/HCPCS: 71046; 99213; G0463

== ENCOUNTER → 2022-03-29 10:10 | Outpatient (CLI) | payer OTHER, SELFPAY ==
--- NOTE | ~2022-03-29 | XR_ITS ---
XR chest 2V DATE: 03/29/2022 10:49 INDICATION: Cough for 6 weeks TECHNIQUE: 2 views COMPARISON: 02/13/2022 2 view chest FINDINGS: Normal heart size. Mild aortic tortuosity. No hilar or mediastinal enlargement. No pulmonary infiltrate or consolidation, pleural effusion or pulmonary vascular congestion or pneumo thorax. Included skeletal structures are unremarkable. IMPRESSION: No active cardiopulmonary disease Reviewed, dictated and finalized at location B. [employer]
== END ==
PROVIDERS: PCP Nurse Practitioner; Visit Provider Nurse Practitioner
DX: R05.9 Cough, unspecified (principal)
CPT/HCPCS: 71046

== ENCOUNTER 2022-09-12 12:27 | Emergency (ER) | payer OTHER, SELFPAY ==
--- NOTE | 2022-09-12 12:36 | ED.URI ---
HPI - URI/Sore Throat General Chief Complaint: Upper Respiratory Infection Stated Complaint: cold symptoms Time Seen by Provider: 09/12/22 12:37 Source: patient Mode of arrival: ambulatory Limitations: no limitations History of Present Illness HPI Narrative: patient is a 72-year-old male presents with 4 days of sinus pressure, sore throat, congestion, a productive cough. also reports right eye was matted shut this morning. Patient take daily Benadryl due to allergies, But does not use Flonase. patient has been using Mucinex DM with mild relief. Denies any headache, fever, chills, ear pain, nausea, vomiting, diarrhea. States he had bronchitis in April Related Data Home Medications Medication Instructions Recorded Confirmed fenofibrate 40 mg tablet 40 mg PO DAILY 02/13/22 09/12/22 Allergies Allergy/AdvReac Type Severity Reaction Status Date / Time No Known Allergies Allergy Verified 09/12/22 12:46 Review of Systems Review of Systems: All systems reviewed & are unremarkable except as noted in HPI and below Constitutional: Constitutional: Denies body ache(s), Denies chills, Denies fatigue, Denies fever(s), Denies headache(s), Denies malaise and Denies weakness Eyes: Eyes: Denies blurry vision, Reports eye discharge, Denies itchy eyes and Denies loss of vision ENT: Denies otalgia, Denies headache(s), Reports nasal congestion, Denies sinus pain, Reports sinus pressure and Reports sore throat Cardiovascular: Cardiovascular: Denies chest pain, Denies irregular heart rhythm and Denies dyspnea Respiratory: Respiratory: Reports cough and Denies dyspnea Gastrointestinal: Gastrointestinal: Denies abdominal pain, Denies diarrhea, Denies nausea and Denies vomiting Musculoskeletal: Musculoskeletal: Denies back pain, Denies myalgias and Denies arthralgias Integumentary/Breasts: Skin/Breast: Denies pruritus and Denies rash Neurologic: Denies headache(s), Denies loss of vision and Denies weakness Psychiatric: Psychiatric: Reports no additional psychiatric complaints Endocrine: Endocrine: Denies fatigue Allergic/Immunologic: Allergic/Immunologic: Denies itchy eyes PMFSH Past Medical History Medical History Essential hypertension Liver cyst Mixed hyperlipidemia Prostate cancer Renal cyst Surgical History Surgical History History of laparoscopic appendectomy History of prostatectomy 12/27/20 Family History Family History Father Patient's father is Hypertension Mother Family history of dementia Other Social History Social History Smoking status: Never smoker Second hand tobacco smoke exposure: Yes Alcohol intake: current Drinks per week: 18 Alcohol use details: on occasion Substance use: never Substance use type: does not use Lack of Transportation: No Lack of Food: Never True Current Housing: I Have Housing Concerned About Future Housing: No Difficulty Paying Gas/Electric Bills: No Difficulty Paying for Meds: No Currently Unemployed: No Education: High School Diploma/GED Difficulty w/ Childcare or Family Care: No Living arrangements: with family Spiritual care concerns: No Comments At time of signature, agree with nursing past medical, surgical, social and family history. There is no relevant family history pertinent to the presenting complaint. Exam Const: General: cooperative, healthy appearing, comfortable, no acute distress and well nourished Nutritional Appearance: well nourished Orientation/consciousness: patient oriented x3 Limitations: no limitations HENMT: Head: normal to inspection, normocephalic and atraumatic Ears: hearing grossly normal bilaterally, external ears normal, TM's normal bilaterally, EAC's no
[2022-09-12 12:45] VITALS: BP 112/76; PULSE 64; RESP 16; TEMP 36.2; O2SAT 98
== END 2022-09-12 13:15 | disposition home or self-care (01) ==
PROVIDERS: Emergency Provider Nurse Practitioner Family; PCP Family Medicine
DX: J06.9 Acute upper respiratory infection, unspecified (principal); I10 Essential (primary) hypertension; E78.2 Mixed hyperlipidemia; Z85.46 Personal history of malignant neoplasm of prostate; Z90.79 Acquired absence of other genital organ(s)
CPT/HCPCS: 99213; G0463

== ENCOUNTER 2024-09-29 13:34 | Outpatient (CLI) | payer OTHER, SELFPAY | END 2024-09-29 13:35 | disposition home or self-care (01) | LOC: ANHAUDIO 13:35 | PROVIDERS: PCP Family Medicine; Visit Provider Family Medicine | DX: H90.3 Sensorineural hearing loss, bilateral (principal); H93.13 Tinnitus, bilateral; H93.8X1 Other specified disorders of right ear; Z01.10 Encounter for examination of ears and hearing without abnormal findings | CPT/HCPCS: 92557; 92567 ==

== ENCOUNTER 2024-12-29 13:09 | Outpatient (CLI) | payer OTHER, SELFPAY ==
--- OUTSIDE RECORDS SUMMARY | 2007-07-19 05:46 | XMS_ITS | Continuity of Care Document ---
Author Organization [facility] Address [address] [place] [address] [place] [address] Phone Care Team Providers Care Whipper Beater Name Role Phone Lynch OD, Shaji Unavailable Unavailable Procedures Procedure Date Eye Exam & Treatment Refraction Advance Directives Directive Yes / No Effective Date File Name No Information Encounters Encounter Description Practice Location Reason(s) For Visit Diagnoses Date Provider Providers Copied on Encounter [facility], [address] [place] [address] [address], [place], [place], [id number], [place] tel:[phone] [facility] No Information 1-200 8 Lynch WARNER Girard. Christina [facility] [address] [facility] [address], [place], [place], [facility], . tel:[phone] Referring Provider: Christina Canela OD [facility] [address], [place], [place], [facility]. tel:[phone] Family History Family Member Type Diagnosis Age At Onset No Information Payers Payer name Insurance type Covered alliance party ID Authoriza tion(s) No Information Social History Type Description Quantity Date Captured Comments Sex Male Smoking Status No Information Chief Complaint And Reason For Visit No Information Reason For Referral Reason For Referral No Information History Of Present Illness Encounter Date Complaint History Of Prese nt Illness No Information Functional Status Date Functional Assessmen t No Information Instructions Date Instruction Additional Infor mation No Information Assessments Type Assessment Date No Information Patient Care Teams Name Effective Dates (start - stop) Status Members No Information
--- NOTE | ~2024-12-29 | XR_ITS ---
EXAMINATION: XR chest 2V, 12/29/2024 13:15 CDT HISTORY: R05.3 - Chronic cough COMPARISON: No comparisons available. Technique: 2 views obtained. Findings: The lungs are clear, no effusion. No pneumothorax. Heart is normal size. Mediastinal and hilar contours are within normal limits. Bony thorax no acute abnormality. Impression: No acute cardiopulmonary abnormality. Reviewed, dictated and finalized at location A. Impression: No acute cardiopulmonary abnormality.
== END 2024-12-29 13:10 | disposition home or self-care (01) ==
PROVIDERS: PCP Family Medicine; Visit Provider Family Medicine
DX: R05.3 Chronic cough (principal)
CPT/HCPCS: 71046

== ENCOUNTER 2025-01-08 08:31 | Outpatient (CLI) | payer OTHER, SELFPAY ==
--- NOTE | ~2025-01-08 | US_ITS ---
EXAMINATION: [facility] 01[facility]08[facility] 8:34 CDT HISTORY: Z82.49 - Family history of ischemic heart disease and oth... Comparison: None Technique: Copeland-scale sonographic images were obtained Findings: No aneurysm is identified, bowel gas limits evaluation and the proximal iliac arteries bilaterally are not clearly demonstrated. IMPRESSION: No aneurysm or ectasia noted Reviewed, dictated and finalized at location P.
== END 2025-01-08 08:32 | disposition home or self-care (01) ==
LOC: GOSHIMG 08:32
PROVIDERS: PCP Family Medicine; Visit Provider Family Medicine
DX: E78.2 Mixed hyperlipidemia (principal); I10 Essential (primary) hypertension; E66.9 Obesity, unspecified; R73.01 Impaired fasting glucose; Z82.49 Family history of ischemic heart disease and other diseases of the circulatory system
CPT/HCPCS: 76706